=== PATIENT | female | born 1985 | race Caucasian/White ===

== ENCOUNTER 2018-08-29 05:19 | Day surgery (SDC) | payer MEDICAID, OTHER ==
[2018-08-29 06:45] LABS: ADD MAN DIFF? NO
[2018-08-29 06:50] LABS: WHITE BLOOD COUNT 8.7 10^3/ul (4.8-10.8)
[2018-08-29 06:50] LABS: BASOPHILS % 0.3 % (0.0-2.0); EOSINOPHILS # 0.2 10^3/ul (0.0-0.5); EOSINOPHILS % 1.8 % (0.0-7.0); HEMATOCRIT 41.7 % (37.0-47.0); HEMOGLOBIN 13.6 g/dl (12.0-16.0); LYMPHOCYTES # 2.7 10^3/ul (0.8-2.9); LYMPHOCYTES % 30.9 % (15.0-51.0); MEAN CORPUSCULAR HEMOGLOBIN 26.6 pg (29.0-33.0); MEAN CORPUSCULAR HGB CONC 32.6 g/dl (32.0-37.0); MEAN CORPUSCULAR VOLUME 81.6 fl (82.0-101.0); MEAN PLATELET VOLUME 10.6 fl (7.4-10.4); MONOCYTE # 0.7 10^3/ul (0.3-0.9); MONOCYTES % 7.8 % (0.0-11.0); NEUTROPHIL # 5.1 10^3/ul (1.6-7.5); NEUTROPHILS % 58.9 % (39.0-77.0); PLATELET COUNT 282 10^3/UL (140-415); RED BLOOD COUNT 5.11 10^6/ul (4.20-5.40); RED CELL DISTRIBUTION WIDTH 14.6 % (11.5-14.5)
[2018-08-29] MEDS ORDERED: DESFLURANE 15 MIN (07:00)
[2018-08-29] MEDS ORDERED: DEXAMETHASONE 4 MG/ML 5 ML INJ (07:00)
[2018-08-29] MEDS ORDERED: FENTAnyl 50 MCG/ML VIAL IV ×3 (07:00)
[2018-08-29] MEDS ORDERED: MIDAZOLAM 1 MG/ML 2 ML INJ (07:00)
[2018-08-29] MEDS ORDERED: ONDANSETRON 4 MG INJ (07:00)
[2018-08-29] MEDS ORDERED: PROPOFOL 20 ML (07:00)
[2018-08-29] MEDS ORDERED: ROCURONIUM 50 MG INJ (07:00)
[2018-08-29] MEDS ORDERED: FENTAnyl 50 MCG/ML VIAL ×2 (07:00→07:59)
[2018-08-29] MEDS ORDERED: FAMOTIDINE 20 MG INJ (07:00)
[2018-08-29] MEDS ORDERED: OXYCODONE/ACETAMINOPHEN (5/325) TAB PO ×2 (07:00)
[2018-08-29] MEDS ORDERED: LIDOCAINE 2% (SDV) 5 ML INJ (07:00)
[2018-08-29] MEDS ORDERED: METOCLOPRAMIDE 10 MG INJ (07:00)
[2018-08-29] MEDS ORDERED: CEFAZOLIN 1 GM INJ (07:01)
[2018-08-29] MEDS ORDERED: GLYCOPYRROLATE 0.4 MG INJ (07:51)
[2018-08-29] MEDS ORDERED: NEOSTIGMINE 3 MG/3 ML SYRINGE ×2 (07:51→08:15)
[2018-08-29] MEDS ORDERED: LABETALOL HCL 20MG INJ (07:59)
[2018-08-29] MEDS ORDERED: KETOROLAC 30 MG INJ (08:16)
[2018-08-29] MEDS ORDERED: ALBUTEROL 0.5% (NEB) 2.5 MG/0.5 ML AMP (08:34)
[2018-08-29] MEDS ORDERED: ALBUTEROL 0.083% (NEB) 2.5 MG/3 ML AMP HHN (08:42)
[2018-08-29] MEDS: MEPERIDINE 25 MG INJ IV (09:15)
[2018-08-29] MEDS: ONDANSETRON 4 MG INJ IV (09:16)
== END 2018-08-29 10:20 | disposition home or self-care (01) ==
LOC: SDS 05:19
DX: Z30.2 Encounter for sterilization (principal)
CPT/HCPCS: 58670; 85025; 86850; 86900; 86901; 94664